=== PATIENT | female | born 1985 | race Caucasian/White ===

== ENCOUNTER 2024-03-15 08:51 | Outpatient (AMB) | payer OTHER, SELFPAY ==
--- NOTE | 2024-03-15 08:54 | A.OFFVIS_ITS ---
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 Today she reports no pain in rates her pain at 0/10. Denies any past or recent trauma, injury or falls. She multiple GI evaluations at [facility], including abdominal CT scan and ultrasound, upper endoscopy and colonoscopy with polyps removed and was told normal GI studies. She regularly follows obvious GI provider with last visit in November 2023 and follow up in May. Her abdominal pain is intermittent and at times reproduced with movements especially with bending and lifting, prolonged standing, certain foods (dairy, protein powder, spicy foods) and deep breathing. Last episode was 1 week ago, with onset of symptoms in the morning, especially on an empty stomach which she was able to relieve with water intake. Patient denies any fever, chills, infection, bloating, nausea, vomiting, bleeding, back pain, dizziness, weakness, constipation or diarrhea. Location: RUQ with occasional radiating into ribcage Duration: Chronic pain for ~1 year Characteristics of symptom or complaint: Stabbing, aching, spasming, sharp, shooting, cramping, burning Aggravating or associated factors: Deep breathing, certain foods Relieving factors: Laying down, avoiding known food triggers Treatment: GI evaluation, walking daily 7-10K steps [facility] Medical History (Updated 03/15/24 @ 09:27 by RAFAL Roman) Small fiber neuropathy Vocal cord dysfunction Anxiety Tension headache GERD (gastroesophageal reflux disease) Muscle strain Chest pain Social History Alcohol intake: current Alcohol intake frequency: a few times a week Patient Tobacco Use Status: Never used Tobacco Review of Systems Const All systems reviewed & are unremarkable except as noted in HPI and below Physical Exam Vital Signs: Last Vital Signs Pulse 75 03/15/24 09:01 BP 127/56 L 03/15/24 09:01 Pulse Ox 100 03/15/24 09:01 Oxygen Delivery Method Room Air 03/15/24 09:01 BMI result Body Mass Index 18.4 General: Appears afebrile. Alert and oriented. Mood and affect appropriate. Follows and participates in conversation appropriately. Respiratory effort is unlabored. No cough. Able to transition from sit to stand unassisted. Ambulates with bilaterally normal heel strike and toe off. GI Inspection: Yes normal to inspection and No abdominal wall ecchymosis Palpation (GI): Soft to palpation, nontender, no guarding, No hepatosplenomegaly present, Carnett's sign positive and No Rebound tenderness present Results Reviewed Results Reviewed: No imaging results or reports are available today. Assessment & Plan Assessment & Plan (1) Abdominal wall pain in right upper quadrant: Code(s): R10.11 - Right upper quadrant pain Category: Medical Plan Discussed interventional treatments to address patient chronic abdominal wall pain, including ultrasound-guided rectus sheath nerve block and intercostal nerve blocks. Patient is hesitant towards injections at this time. She is interested to pursue formal physical therapy and establish a home exercise program. Script provided for PT with closest location to her home per patient request. All questions and concerns have been answered and patient agreed with the treatment plan. Follow-up after PT and sooner as needed. Orders: Orders PT Evaluation and Treatment Today G62.9 - Polyneuropathy, unspecified, R10.11 - Right upper quadrant pain Coding Level of Care Code New Pt Level 3 (86051) Diagnoses Abdominal wall pain in right upper quadrant R10.11
[2024-03-15 09:01] VITALS: BP 127/56; PULSE 75; O2SAT 100; BMI 18.4
== END 2024-03-15 09:37 | disposition home or self-care (01) ==
PROVIDERS: PCP Internal Medicine; Referring Provider Internal Medicine; Visit Provider Nurse Practitioner Family
DX: R10.11 Right upper quadrant pain (principal)
CPT/HCPCS: 99203

== ENCOUNTER → 2024-03-15 08:51 | Outpatient (BNVA) | payer OTHER, SELFPAY | PROVIDERS: PCP Internal Medicine; Referring Provider Internal Medicine; Visit Provider Nurse Practitioner Family ==